=== PATIENT | male | born 2000 | race Caucasian/White ===

== ENCOUNTER 2020-01-11 08:57 | Outpatient (REF) | payer OTHER, SELFPAY ==
[2020-01-11 09:39] LABS: MANUAL DIFF FLAG NO
[2020-01-11 09:41] LABS: Basophils Percent Auto 0.6 % (0-2); Eosinophils Absolute Auto 0.2 X10*3/uL (0.0-0.4); Eosinophils Percent Auto 2.9 % (0-4); Hematocrit 47.9 % (42-52); Hemoglobin 15.7 g/dl (14.0-18.0); Imm Gran Abs Auto 0.03 X10*3/uL (0.00-0.03); Imm Gran Pct Auto 0.4 % (0.0-0.4); Lymphocytes Absolute Auto 2.3 X10*3/uL (1.2-4.9); Lymphocytes Percent Auto 31.6 % (20-40); Mean Corpuscular HGB Conc 32.8 g/dl (31.0-36.0); Mean Corpuscular Hemoglobin 26.5 pg (27.0-33.0); Mean Corpuscular Volume 80.8 fL (80-98); Mean Platelet Volume 10.1 fL (9.4-12.4); Monocytes Absolute Auto 0.6 X10*3/uL (0.1-1.2); Monocytes Percent Auto 8.3 % (2-11); Neutrophils Absolute Auto 4.1 X10*3/uL (2.0-8.3); Neutrophils Percent Auto 56.2 % (45-73); Platelet Count 300 X10*3/uL (160-400); Red Blood Count 5.93 X10*6/uL (4.60-5.80); Red Cell Distribution Width 12.4 % (11.0-16.0); White Blood Count 7.3 X10*3/uL (4.8-10.8)
[2020-01-11 10:11] LABS: Alanine Aminotransferase 39 U/L (0-40); Albumin Level 4.5 g/dL (3.5-5.0); Alkaline Phosphatase 100 U/L (39-117); Anion Gap 10 (12-20); Aspartate Amino Transferase 26 U/L (5-37); Bilirubin Total 0.9 mg/dL (0.0-1.0); Blood Urea Nitrogen 13 mg/dL (9-16); Calcium 9.5 mg/dL (8.4-10.2); Carbon Dioxide 29 mmol/L (22-29); Chloride 105 mmol/L (96-108); Estimated Glomerular Filt Rate > 60; Glucose Fasting 96 mg/dL (60-99); Potassium 4.4 mmol/l (3.3-5.1); Sodium 140 mmol/L (135-145); Total Protein 6.9 g/dL (6.5-8.0)
[2020-01-11 10:31] LABS: Thyroid Stimulating Hormone 1.54 mIU/mL (0.32-4.0)
== END 2020-01-11 08:58 | disposition home or self-care (01) ==
LOC: HO.LAB 08:57
PROVIDERS: PCP Physician Assistant; Visit Provider Physician Assistant
DX: Z13.29 Encounter for screening for other suspected endocrine disorder (principal); J45.20 Mild intermittent asthma, uncomplicated
CPT/HCPCS: 36415; 80053; 84443; 85025

== ENCOUNTER 2020-09-25 10:35 | Emergency (ER) | payer OTHER, SELFPAY ==
--- NOTE | 2020-09-25 | ECG_ITS ---
Test Reason : CHEST PAIN Blood Pressure : / mmHG Vent. Rate : 072 BPM Atrial Rate : 072 BPM P-R Int : 134 ms QRS Dur : 098 ms QT Int : 360 ms P-R-T Axes : 056 074 041 degrees QTc Int : 394 ms Normal sinus rhythm with sinus arrhythmia Early repolarization Normal ECG When compared with ECG of 23-APR-2013 20:37, No significant changes seen Referred By: Generic ED Physician Electronically Signed By:MARIANNE VALENZUELA MD
--- NOTE | ~2020-09-25 | XR_ITS ---
EXAMINATION: XR CHEST CLINICAL INFORMATION: Right-sided chest pain COMPARISON: None TECHNIQUE: 2 views of the chest were obtained. FINDINGS: No significant abnormality is noted involving the heart, lungs, mediastinum, bony thorax or soft tissues. XR/XR chest 2V IMPRESSION: Unremarkable examination.
[2020-09-25 10:47] VITALS: BP 139/81; PULSE 78; RESP 18; TEMP 36.2; O2SAT 97; BMI 24.6
--- NOTE | 2020-09-25 12:14 | ED.CHESTPAIN ---
HPI - Chest Pain General Chief Complaint: Chest Pain Stated Complaint: CHEST PAIN Time Seen by Provider: 09/25/20 11:34 Source: patient Mode of arrival: ambulatory Limitations: no limitations History of Present Illness HPI narrative: 19 y/o healthy male presenting to the ER with acute onset of sharp right upper chest pains that woke him up out of sleep this morning. He states he has some central chest pain as well but it migrated to his right upper chest. They were sharp and come and go, improved now. He states it was worse with swallowing. He denies SOB, difficulty breathing, cough, shoulder pain, hemoptysis, LE swelling. He has a family history of DVT/PE on his mother's side in 2 family members. No history of early cardiac disease. 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 MD complaint: chest pain Onset (ago): hour(s) (6) Timing of current episode: episodic Prior episodes: No Onset: during rest Pain location: right chest Severity: moderate Quality: sharp Relieving factors: nothing Exacerbating factors: nothing Treatment prior to arrival: none Related Data Previous Rx's Medication Instructions Recorded albuterol sulfate 90 mcg/actuation 2 puff INHALATION Q4-6H PRN #8.5 g 08/10/20 aerosol inhaler ibuprofen 800 mg PO Q8H PRN #8 tab 09/25/20 Allergies Allergy/AdvReac Type Severity Reaction Status Date / Time No Known Allergies Allergy Unverified 12/12/19 16:50 Mosquitos Allergy Unknown Uncoded 08/09/19 00:00 Rabbits Allergy Unknown Uncoded 08/09/19 00:00 Seasonal Allergy Unknown Uncoded 08/09/19 00:00 Review of Systems Review of Systems: Constitutional: No Fever, No Chills ENT/Mouth: No sore throat, No Rhinorrhea, No Swallowing Difficulty Cardiovascular: + Chest Pain, No SOB, No Orthopnea, No Edema Respiratory: No Cough, No Sputum, No Wheezing, No dyspnea Gastrointestinal: No Nausea, No Vomiting, No Diarrhea, No abdominal Pain Genitourinary: No Dysuria, No Urinary Frequency, No Hematuria Musculoskeletal: No joint pain, No Myalgias Skin: No Skin Lesions, No rash Neuro: No Weakness, No Numbness, No Dizziness, No Headache Psych: No Anxiety/Panic, No Depression Heme/Lymph: No Bruising, No Lymphadenopathy Endocrine: No Polyuria, No Polydipsia [facility] Past Medical History Attestation statement: The following information was validated with the patient. Medical History Asthma Social History Social History Advance Directives: Yes Advance Directives Information Provided: Yes Advance Directives on File: No Physical Exam Vital Signs: Vital Signs: Last Vital Signs Temp 97.2 F 09/25/20 10:47 Pulse 78 09/25/20 10:47 Resp 18 09/25/20 10:47 BP 139/81 09/25/20 10:47 Pulse Ox 97 09/25/20 10:47 Body Mass Index 24.6 Appearance: Alert. Oriented X3. No acute distress. Eyes: Pupils equal, round and reactive to light. ENT: Pharynx normal. Neck: Normal inspection. Neck supple. CVS: Normal heart rate and rhythm. Pulses normal. Respiratory: No respiratory distress. Breath sounds normal. Anterior chest wall is non-tender. Abdomen: Soft and nontender. +BS x4 Skin: Skin warm and dry. Normal skin color. Normal skin turgor. No rashes. Extremities: No lower extremity edema. Negative Sarmad's sign Neuro: Oriented X 3. No motor deficit. No sensory deficit. Course Course Course Narrative: 19 y/o male presenting with acute onset of right sided chest pain x7 hours, significantly improved now. +family history of DVT/PE. Will check CXR, EKG and labs including DDimer. Most likely anxiety related vs MSK. Reevaluation(s) Reevaluation #1: DDIMER is negative which is reassuring against PE. PERC negative. Troponin not clinically significant. No need to repeat given chest pain is >6 hours ago. Chest pain is most likely muscular. It is chest pain free at this time. He is stable for d/c home with PRN ibuprofen, rest and f/u with PCP. Patient agrees with plan. MDM - Chest Pain Medical Records Data Attestation: I reviewed the patient's medical records. Lab Data Attestation: I reviewed the patient's lab results. Result diagrams: 09/25/20 12:19 09/25/20 12:19 Labs: Lab Results 09/25/20 09/25/20 09/25/20 Range/Units 12:19 12:19 12:19 WBC 8.2 (4.8-10.8) X10*3/uL RBC 6.04 H (4.60-5.80) X10*6/uL Hgb 16.0 (14.0-18.0) g/dl Hct 48.5 (42-52) % MCV 80.3 (80-98) fL MCH 26.5 L (27.0-33.0) pg MCHC 33.0 (31.0-36.0) g/dl RDW 12.6 (11.0-16.0) % Plt Count 280 (160-400) X10*3/uL MPV 10.2 (9.4-12.4) fL Immature Gran % (Auto) 0.6 H (0.0-0.4) % Neut % (Auto) 64.6 (45-73) % Lymph % (Auto) 23.4 (20-40) % [place] % (Auto) 8.0 (2-11) % Eos % (Auto) 3.0 (0-4) % Baso % (Auto) 0.4 (0-2) % Lymph # (Auto) 2.7 (1.2-4.9) X10*3/uL [place] # (Auto) 0.3 (0.1-1.2) X10*3/uL Eos # (Auto) 0.2 (0.0-0.4) X10*3/uL Baso # (Auto) 0.1 (0.0-0.2) X10*3/uL Abs Immat Gran (auto) 0.00 (0.00-0.03) X10*3/uL Absolute Neuts (auto) 3.4 (2.0-8.3) X10*3/uL Absolute Nucleated RBC 0.000 (0.0-0.012) X10*3/uL Nucleated RBC % (auto) 0.0 (0.0-0.2) /100WBC D-Dimer < 200 NG/ML Sodium 140 (135-145) mmol/L Potassium 4.3 (3.3-5.1) mmol/L Chloride 106 (96-108) mmol/L Carbon Dioxide 28 (22-29) mmol/L Anion Gap 10 L (12-20) BUN 10 (9-16) mg/dL Creatinine 0.92 (0.5-1.4) mg/dL Estim Creat Clear Calc 123.9 Estimated GFR > 60 Random Glucose 95 (60-115) mg/dL Calcium 10.3 H D (8.4-10.2) mg/dL Total Bilirubin 0.5 (0.0-1.0) mg/dL Direct Bilirubin 0.2 (0.0-0.5) mg/dL AST 25 (5-37) U/L ALT 48 H (0-40) U/L Alkaline Phosphatase 114 (39-117) U/L Troponin I High Sens (<3.5-35.0) ng/L Total Protein 7.0 (6.5-8.0) g/dL Albumin 4.4 (3.5-5.0) g/dL 09/25/20 Range/Units 12:19 WBC (4.8-10.8) X10*3/uL RBC (4.60-5.80) X10*6/uL Hgb (14.0-18.0) g/dl Hct (42-52) % MCV (80-98) fL MCH (27.0-33.0) pg MCHC (31.0-36.0) g/dl RDW (11.0-16.0) % Plt Count (160-400) X10*3/uL MPV (9.4-12.4) fL Immature Gran % (Auto) (0.0-0.4) % Neut % (Auto) (45-73) % Lymph % (Auto) (20-40) % [place] % (Auto) (2-11) % Eos % (Auto) (0-4) % Baso % (Auto) (0-2) % Lymph # (Auto) (1.2-4.9) X10*3/uL [place] # (Auto) (0.1-1.2) X10*3/uL Eos # (Auto) (0.0-0.4) X10*3/uL Baso # (Auto) (0.0-0.2) X10*3/uL Abs Immat Gran (auto) (0.00-0.03) X10*3/uL Absolute Neuts (auto) (2.0-8.3) X10*3/uL Absolute Nucleated RBC (0.0-0.012) X10*3/uL Nucleated RBC % (auto) (0.0-0.2) /100WBC D-Dimer NG/ML Sodium (135-145) mmol/L Potassium (3.3-5.1) mmol/L Chloride (96-108) mmol/L Carbon Dioxide (22-29) mmol/L Anion Gap (12-20) BUN (9-16) mg/dL Creatinine (0.5-1.4) mg/dL Estim Creat Clear Calc Estimated GFR Random Glucose (60-115) mg/dL Calcium (8.4-10.2) mg/dL Total Bilirubin (0.0-1.0) mg/dL Direct Bilirubin (0.0-0.5) mg/dL AST (5-37) U/L ALT (0-40) U/L Alkaline Phosphatase (39-117) U/L Troponin I High Sens 5.8 (<3.5-35.0) ng/L Total Protein (6.5-8.0) g/dL Albumin (3.5-5.0) g/dL ECG Data ECG #1: Attestation: I personally reviewed and interpreted this ECG as follows: ECG interpretation date: 09/25/20 ECG interpretation time: 12:24 Prior ECG tracings: available for review Interpretation: normal sinus rhythm with sinus arrhythmia, early repolarization, HR 72 bpm, ID interval normal 134 ms, normal QTc Discharge Plan Discharge Clinical Impression: Atypical chest pain Patient Disposition: Home, Self-Care Instructions: Chest Pain (ED), Costochondritis (ED) Additional Instructions: Your chest x-ray, EKG and lab workup today was unremarkable. Your pain is most likely muscular. Recommend rest and ibuprofen as needed. Follow up with your doctor next week. If you develop new or worsening symptoms call 911 or come back to the ER for further evaluation. Prescriptions: New ibuprofen 800 mg tablet 800 mg PO Q8H PRN (Reason: pain) Qty: 8 RF: 0 No Action albuterol sulfate [ProAir HFA] 90 mcg/actuation HFA aerosol inhaler 2 puff inhalation Q4-6H PRN (Reason: shortness of breath or wheezing) Qty: 8.5 RF: 3 Stand Alone Forms: Work/School Release
[2020-09-25 12:23] LABS: MANUAL DIFF FLAG NO
[2020-09-25 12:33] LABS: Basophils Absolute Auto 0.1 X10*3/uL (0.0-0.2); D Dimer < 200 NG/ML; Eosinophils Absolute Auto 0.2 X10*3/uL (0.0-0.4); Lymphocytes Absolute Auto 2.7 X10*3/uL (1.2-4.9); Monocytes Absolute Auto 0.3 X10*3/uL (0.1-1.2); Neutrophils Absolute Auto 3.4 X10*3/uL (2.0-8.3)
[2020-09-25 12:40] LABS: Red Blood Count 6.04 X10*6/uL (4.60-5.80); White Blood Count 8.2 X10*3/uL (4.8-10.8)
[2020-09-25 12:42] LABS: Hematocrit 48.5 % (42-52); Mean Corpuscular Volume 80.3 fL (80-98)
[2020-09-25 12:43] LABS: Mean Corpuscular Hemoglobin 26.5 pg (27.0-33.0)
[2020-09-25 12:44] LABS: Platelet Count 280 X10*3/uL (160-400); Red Cell Distribution Width 12.6 % (11.0-16.0)
[2020-09-25 12:45] LABS: Mean Platelet Volume 10.2 fL (9.4-12.4); Neutrophils Percent Auto 64.6 % (45-73)
[2020-09-25 12:46] LABS: Imm Gran Pct Auto 0.6 % (0.0-0.4); Lymphocytes Percent Auto 23.4 % (20-40)
[2020-09-25 12:47] LABS: Basophils Percent Auto 0.4 % (0-2)
[2020-09-25 12:53] LABS: Alanine Aminotransferase 48 U/L (0-40); Albumin Level 4.4 g/dL (3.5-5.0); Alkaline Phosphatase 114 U/L (39-117); Anion Gap 10 (12-20); Aspartate Amino Transferase 25 U/L (5-37); Bilirubin Direct 0.2 mg/dL (0.0-0.5); Bilirubin Total 0.5 mg/dL (0.0-1.0); Blood Urea Nitrogen 10 mg/dL (9-16); Calcium 10.3 mg/dL (8.4-10.2); Carbon Dioxide 28 mmol/L (22-29); Chloride 106 mmol/L (96-108); Creatinine Clr Calc Pharmacy 123.9; Estimated Glomerular Filt Rate > 60; Glucose Random 95 mg/dL (60-115); Potassium 4.3 mmol/L (3.3-5.1); Sodium 140 mmol/L (135-145)
[2020-09-25 13:01] LABS: Troponin-I High Sensitivity 5.8 ng/L (<3.5-35.0)
== END 2020-09-25 13:46 | disposition home or self-care (01) ==
PROVIDERS: Physician Assistant; Emergency Provider Emergency Medicine Emergency Medical Services; PCP Physician Assistant
DX: R07.89 Other chest pain (principal)
CPT/HCPCS: 36415; 71046; 80048; 80076; 84484; 85025; 85379; 93005; 99283

== ENCOUNTER 2020-10-25 13:27 | Emergency (ER) | payer OTHER, SELFPAY ==
[2020-10-25 14:21] VITALS: BP 127/81; PULSE 80; RESP 16; TEMP 36.6; O2SAT 98; BMI 25.8
--- NOTE | 2020-10-25 15:27 | ED_ITS ---
HPI - Skin/Abscess/Foreign Bdy General Chief complaint: Skin/Abscess/Foreign Body Stated complaint: rash Source: patient Mode of arrival: ambulatory Limitations: no limitations History of Present Illness HPI narrative: Patient presents to ED for itchy rash on bilateral lower extremities and arms. Patient still having rash 4 weeks. Patient denies any rash in groin or testicles. Patient states no fever, chills, chest pain, or shortness of breath. Patient denies any swelling of lips, tongue, or shortness of breath MD complaint: rash Related Data Previous Rx's Medication Instructions Recorded albuterol sulfate 90 mcg/actuation 2 puff INHALATION Q4-6H PRN #8.5 g 08/10/20 aerosol inhaler (ProAir HFA) ibuprofen 800 mg tablet 800 mg PO Q8H PRN #8 tab 09/25/20 diphenhydramine HCl 25 mg capsule 25 mg PO TID PRN #30 cap 10/25/20 (Benadryl) famotidine 20 mg tablet (Pepcid) 20 mg PO BID 10 Days #20 tab 10/25/20 prednisone 20 mg tablet 60 mg PO DAILY 5 Days #15 tab 10/25/20 Allergies Allergy/AdvReac Type Severity Reaction Status Date / Time No Known Allergies Allergy Unverified 12/12/19 16:50 Mosquitos Allergy Unknown Uncoded 08/09/19 00:00 Rabbits Allergy Unknown Uncoded 08/09/19 00:00 Seasonal Allergy Unknown Uncoded 08/09/19 00:00 Review of Systems Review of Systems: Yes all other systems are reviewed and are negative Constitutional: Constitutional: Reports as per HPI and Reports no additional constitutional complaints Eyes: Eyes: Reports as per HPI and Reports no additional eye complaints ENT: Reports system reviewed and no additional complaints, except as documented and Reports as per HPI Cardiovascular: Cardiovascular: Reports as per HPI and Reports no additional cardiovascular complaints Respiratory: Respiratory: Reports as per HPI and Reports no additional respiratory complaints Gastrointestinal: Gastrointestinal: Reports as per HPI and Reports no additional gastrointestinal complaints Genitourinary: Genitourinary: Reports no additional male genitourinary complaints and Reports as per HPI Musculoskeletal: Musculoskeletal: Reports no additional musculoskeletal complaints and Reports as per HPI Comments: Itchy red PMFSH Past Medical History Medical History Asthma Social History Social History Advance Directives: No Advance Directives Information Provided: Yes Physical Exam Vital Signs: Vital Signs: Last Vital Signs Temp 98 F 10/25/20 14:21 Pulse 80 10/25/20 14:21 Resp 16 10/25/20 14:21 BP 127/81 10/25/20 14:21 Pulse Ox 98 10/25/20 14:21 Body Mass Index 25.8 Const: General: cooperative, healthy appearing, comfortable, no acute distress, well developed, alert, awake and Physically active Orientation/consciousness: patient oriented x3 HENMT: Head: Yes normal to inspection, Yes No palpable skull fracture present, Yes normocephalic and Yes atraumatic Eyes: General: appearance normal, both eyes and all related structures Neck: Neck: Yes normal visual inspection, Yes full ROM, Yes no lymphadenopathy, Yes no meningeal signs, Yes trachea midline, Yes supple and No tender Chest: Chest palpation & inspection: normal inspection of the chest and normal palpation of entire chest wall Resp: Effort & Inspection: normal respiratory effort and able to speak in complete sentences Auscultation: clear to auscultation bilaterally Cardio: Jugular venous distension: no JVD Heart sounds: S1 normal heart sound present and S2 normal heart sound present GI: Inspection: Yes normal to inspection and No abdominal wall ecchymosis Palpation (GI): Soft to palpation, not firm, nontender, no guarding and not rigid : General: No CVA tenderness and Yes no CVA tenderness Back/Spine/Pelvis: Back: no CVA tenderness, No CVA tenderness and No back tenderness Skin: General skin exam: elasticity normal Rashes: rashes noted (Dermatitis/uticaria rash on lower and upper extremities) Neuro: General: patient oriented x3, gait normal, no meningeal signs and CN's II-XI intact bilaterally Cranial nerves: Yes CN's II-XII intact bilaterally Extrem: Other: Dermatitis/Uticaria rash Psych: Appearance: grossly normal, well kempt and not disheveled Course Course Course Narrative: Dermatitis/Uticaria Reevaluation(s) Reevaluation #1: Patient will be sent home with Benadryl, prednisone, Pepcid Time: 15:34 MDM - Skin/Abscess/Foreign Bdy MDM Narrative Medical decision making narrative: Dermatitis versus he had a cardiac Discharge Plan Discharge Clinical Impression: Acute urticaria, Acute dermatitis Patient Disposition: Home, Self-Care Instructions: Urticaria (ED), Dermatitis (ED) Additional Instructions: Rash may be due to allergy or recent contact with Irritant. Return to the ED for any lip swelling, tongue swelling, shortness of breath, chest pain, fever, chills, worsening rash, or any other concerning symptoms. Follow-up with [facility]. [facility], [address] [place] [address], [place] [address]. Prescriptions: New prednisone 20 mg tablet 60 mg PO DAILY 5 Days Qty: 15 RF: 0 famotidine [Pepcid] 20 mg tablet 20 mg PO BID 10 Days Qty: 20 RF: 0 diphenhydramine HCl [Benadryl] 25 mg capsule 25 mg PO TID PRN (Reason: itchiness) Qty: 30 RF: 0 No Action albuterol sulfate [ProAir HFA] 90 mcg/actuation HFA aerosol inhaler 2 puff inhalation Q4-6H PRN (Reason: shortness of breath or wheezing) Qty: 8.5 RF: 3 ibuprofen 800 mg tablet 800 mg PO Q8H PRN (Reason: pain) Qty: 8 RF: 0 Interventions: ED Discharge Assessment Last Done: 10/25/20 15:48 Discharge Date/Time: 10/25/20 15:49 Print Language: Irish
== END 2020-10-25 15:49 | disposition home or self-care (01) ==
PROVIDERS: Emergency Provider Internal Medicine; PCP Physician Assistant
DX: L23.9 Allergic contact dermatitis, unspecified cause (principal); R21 Rash and other nonspecific skin eruption; Z79.899 Other long term (current) drug therapy
CPT/HCPCS: 99283

== ENCOUNTER 2021-03-24 11:54 | Outpatient (REF) | payer OTHER, SELFPAY ==
[2021-03-24 15:17] LABS: COVID-19 Test Negative (Negative); IDNOW Serial# 55D5AD1C
== END 2021-03-24 11:55 | disposition home or self-care (01) ==
LOC: HO.LAB 11:54
PROVIDERS: Visit Provider Internal Medicine
DX: Z20.822 Contact with and (suspected) exposure to COVID-19 (principal)
CPT/HCPCS: 36415; 87635; C9803

== ENCOUNTER 2023-03-09 10:02 | Outpatient (AMB) | payer OTHER, SELFPAY ==
--- NOTE | 2023-03-09 10:14 | MHC.PC.OV ---
Vital Signs 03/09/23 10:15 Height 5 ft 9 in Weight 184 lb 8 oz BMI 27.2 BP 108/72 Blood Pressure Location Lt brachial Position Sitting Respiration 17 Pulse 68 Pulse Source Palpation Intake Visit Reasons: PE Intake Note: Patient is here today for a physical. 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 Accompanied by: Father Allergies Mosquitos Allergy (Unknown, Uncoded 03/09/23 10:48) infections Rabbits Allergy (Unknown, Uncoded 03/09/23 10:48) Unknown Seasonal Allergy (Unknown, Uncoded 03/09/23 10:48) stuffy nose, itchy eye, coughing Medication List - Last Reconciled 03/09/23 by Deuce Arauz PA-C albuterol sulfate 90 mcg/actuation 1 inh inhalation QID cetirizine 10 mg PO DAILY 90 days Tobacco use date assessed: 03/09/23 Dental Screening Dental Screen Date: 03/09/23 Did you have a dental visit in the last 12 months?: Yes Did you have a dental problem in the last 6 months where you did not have access to dental care?: No Was dental information given to patient?: Patient has dentist HPI PE HPI Details Patient is a 22-year-old male here today for an annual physical. Patient has a past medical history of asthma to which she seldomly takes is albuterol inhaler. .. Asthma: Has been well controlled with allergy medication and only p.r.n. use of his albuterol inhaler. Concerns--> reports having random migraines once to twice per week. He does use a profound which does help relieve his migraines. He cannot confirm a trigger that could be causing his head pain. Vaccines: Needs up-to-date tetanus, declines COVID and flu PFSH Medical History Asthma Surgical History History of circumcision Family History Mother Diabetes Asthma High blood pressure Insomnia Father No problems noted. Other Mental health disorder Social History Housing: House Alcohol intake: never Patient Tobacco Use Status: Never used Tobacco e-Cigarette/Vaping Use: Never Used Second Hand Smoke Exposure: Yes service: No Current occupational status: employed Current occupation: Headroom Cognitive needs: No Hearing needs: No Vision needs: No Questionnaire PHQ-9 Over the last 2 weeks, how often have you been bothered by any of the following problems? 1. Little interest or pleasure in doing things: not at all 2. Feeling down, depressed, or hopeless: not at all 3. Trouble falling or staying asleep, or sleeping too much: not at all 4. Feeling tired or having little energy: not at all 5. Poor appetite or overeating: not at all 6. Feeling bad about yourself - or that you are a failure or have let yourself or your family down: not at all 7. Trouble concentrating on things, such as reading the newspaper or watching television: not at all 8. Moving or speaking so slowly that other people could have noticed. Or the opposite - being so fidgety or restless that you have been moving around a lot more than usual: not at all 9. Thoughts that you would be better off or of hurting yourself in some way: not at all Total score: 0 Depression Screening Interpretation: Negative Depression Screening Done: Yes 28611 - PHQ-9 Billing: Yes Source: Developed by Drs. Raudel Alicea, Lina Salmeron, Chino Ye and colleagues, with an educational kriss from [employer] Thrive Questionnaire Date Thrive assessed: 03/09/23 I am a: Patient What is your living situation today?: I have a steady place to live Within the past 12 months, did the food you bought not last and you didn't have the money to get more?: Never true Within the past 12 months, did you worry whether your food would run out before you got money to buy more?: Never true Do you have trouble paying for medicines?: No Do you have trouble getting transportation to medical appointments?: No Do you have trouble paying your heating and electricity bill?: No Do you have trouble taking care of your child, family member or friend?: No Do you have trouble with day-to-day activities such as bathing, preparing meals, shopping, managing finances, etc.?: No Are you currently unemployed and looking for a job?: No Are you interested in more education?: No Please select the resources that you would like help with: None Currently or been in a relationship where the following occur: no concerns reported AUDIT C Alcohol Use Questionnaire (AUDIT-C) 1. How often do you have a drink containing alcohol?: Never 3. How often do you have six or more drinks on one occasion?: Never Total Score: 0 DERECK-7 AMB Questionnaire DERECK-7 Date DERECK - 7 assessed: 03/09/23 Feeling nervous, anxious, or on edge: 0 = Not at all Not being able to stop or control worryin = Not at all Worrying too much about different things: 0 = Not at all Trouble relaxin = Not at all Being so restless that it is hard to sit still: 0 = Not at all Becoming easily annoyed or irritable: 0 = Not at all Feeling afraid as if something awful might happen: 0 = Not at all Total DERECK-7 score (0-4 normal; 5-9 mild; 10-14 moderate; 15-21 severe): 0 Source: Developed by Drs. Raudel Alicea, Lina Salmeron, Chino Ye and colleagues, with an educational kriss from [employer] DERECK-7 Assessment Billing DERECK-7 Assessment Tool: DERECK-7 Assessment 44309 Review of Systems Const Denies body aches, Denies chills, Denies excessive sweating, Denies fatigue, Denies fever(s) and Denies headache(s) Eyes Denies blurry vision ENT Denies dysphagia, Denies vertigo, Denies dizziness, Denies headache(s), Denies hearing loss and Denies tinnitus Card Denies chest pain, Denies chest pain with activity, Denies syncope, Denies irregular heart rhythm and Denies dyspnea Resp Denies chest congestion, Denies cough, Denies hemoptysis, Denies dyspnea and Denies wheezing GI Denies abdominal pain, Denies melena, Denies hematochezia, Denies coffee ground emesis, Denies dysphagia, Denies diarrhea, Denies nausea and Denies vomiting Denies difficulty urinating, Denies dysuria, Denies urinary frequency, Denies urinary hesitancy and Denies urinary urgency Musc Denies arthralgias, Denies limited range of motion, Denies muscle cramps and Denies muscle weakness Skin/Breast Denies rash and Denies skin ulcer Neuro Denies Abnormal speech present, Denies confusion, Denies vertigo, Denies dizziness, Denies syncope, Denies headache(s), Denies memory loss and Denies seizure-like activity Psych Denies anxiety, Denies confusion, Denies depression, Denies memory loss, Denies panic attacks and Denies paranoia Endo Denies excessive sweating, Denies fatigue, Denies flushing, Denies polydipsia and Denies polyuria Aller/Immun Denies wheezing Physical exam (Primary Care) Vital Signs: Last Vital Signs Pulse 68 03/09/23 10:15 Resp 17 03/09/23 10:15 BP 108/72 03/09/23 10:15 BMI result Body Mass Index 27.2 Tobacco/Smoking Status: Tobacco use Status Tobacco use date assessed 03/09/23 03/09/23 10:21 Patient Tobacco Use Status Never used Tobacco 03/09/23 10:21 e-Cigarette/Vaping Use Never Used 03/09/23 10:21 PHQ-9: PHQ-9 Score PHQ-9: Total score 0 03/09/23 10:58 Depression Screening Interpretation: Negative Thrive Assessment: Date of Thrive Assessment Date Thrive assessed 03/09/23 03/09/23 10:21 Currently or been in a relationship where the following occur: no concerns reported Const General: cooperative, comfortable, no acute distress, alert and awake; No confusion Orientation/consciousness: oriented to person, oriented to place, patient oriented x3 and No confusion HENMT Head: Yes normocephalic Ears: external ears normal and TM's normal bilaterally Face and sinus: No sinus tenderness Mouth: Normal oral and palatal mucosa present and tongue normal Teeth and gingiva: dentition normal and gingiva normal Throat: Yes posterior oropharynx normal, Yes tonsils normal and Yes uvula midline Eyes Conjunctivae: conjunctivae normal Sclerae: sclerae normal Pupils: Equal, round and reactive pupils present EOM: EOMs intact bilaterally Direct Ophthalmoscopy: No no photophobia Neck Neck: Yes no lymphadenopathy, No tender and Yes no JVD Thyroid: Thyroid normal Carotids: no bruits Chest Chest palpation & inspection: no tenderness Resp Effort & Inspection: normal respiratory effort, no audible wheezes, not labored and no stridor Auscultation: no crackles, no rales, no rhonchi and no wheezes Cardio Jugular venous distension: no JVD Rate: regular rate, not bradycardic and not tachycardic Rhythm: regular rhythm Bruits: no carotid bruits Peripheral pulses: Peripheral pulses 2+ throughout GI Inspection: Yes normal to inspection, No abdominal wall ecchymosis and No visible herniation Palpation (GI): Soft to palpation, nontender, no guarding, not rigid and No hepatosplenomegaly present Auscultation: normoactive bowel sounds General: Yes no CVA tenderness Back/Spine/Pelvis Back: no CVA tenderness and No back tenderness Cervical Spine: cervical ROM normal Thoracic/Lumbar Spine: thoracic and lumbar spine normal to inspection, straight leg raise negative bilaterally, No thoraco-lumbar ROM limited and No lumbar spinal tenderness Skin Lesions: no lesions Rashes: no rashes Wounds: no wounds Neuro General: oriented to person, oriented to place, patient oriented x3, CN's II-XI intact bilaterally and No confusion Cranial nerves: Yes Equal, round and reactive pupils present and Yes Normal accommodation reflex present Cognition (Neuro): normal cognition Speech: No Abnormal speech present Gait exam (Neuro): Normal gait present Motor exam (neuro): 5/5 motor strength present throughout Extrem Right upper extremity: full ROM; no cyanosis Left upper extremity: full ROM; no cyanosis Right lower extremity: no edema Left lower extremity: no edema Psych Appearance: grossly normal Mental Status: mental status grossly normal Affect: normal affect Attitude: cooperative Thought process: Normal thought process present Immunizations Boostrix Tdap 2.5 Lf unit-8 mcg-5 Lf/0.5 mL intramuscular syringe Performing Provider: Deuce Arauz PA-C [facility] Administered by: EVENS Childs on 03/09/23 11:09 Dose Route Admin Location Dispensed Lot Number Expiration Date NDC [employer] 0.5 mL IM Left Deltoid 0.5 mL [id number] 07/20/25 58785-337-81 [employer] VIS Given Date VIS Provided VIS Publication Date 03/09/23 Single Vaccine 20 Eligibility Eligibility Date Funding Source Not [facility] Eligible 03/09/23 Private Assessment and Plan Assessment & Plan (1) Annual physical exam: Code(s): Z00.00 - Encounter for general adult medical examination without abnormal findings (2) Asthma: Code(s): J45.909 - Unspecified asthma, uncomplicated Qualifiers: Asthma severity: mild Asthma persistence: intermittent Asthma complication type: uncomplicated Qualified Code(s): J45.20 - Mild intermittent asthma, uncomplicated Plan: Reports his asthma has been well controlled with only p.r.n. use of his asthma inhaler. The nighttime awakenings with asthma symptoms or recent asthma exacerbations (3) Seasonal allergies: Code(s): J30.2 - Other seasonal allergic rhinitis Plan: Continues with the use of daily use Zyrtec for his allergy symptoms. (4) Migraines: Code(s): G43.909 - Migraine, unspecified, not intractable, without status migrainosus Qualifiers: Migraine type: other Status migrainosus presence: without status migrainosus Intractability: not intractable Qualified Code(s): G43.809 - Other migraine, not intractable, without status migrainosus Plan: Reports over the last few months having random episodes of right-sided head pain. He reports they happen once or twice a week. He does use ibuprofen which has been helpful in reducing his head pain. He is willing to try magnesium and vitamin B2 . Will also trial Triptan for migraine. Orders: Orders Comprehensive [place]. Panel Fast Today Z13.1 - Encounter for screening for diabetes mellitus TDaP Immunization Today G43.809 - Other migraine, not intractable, without status migrainosus, Z23 - Encounter for immunization Medications: New riboflavin (vitamin B2) 50 mg PO DAILY 90 days 90 tabs 1RF G43.809 - Other migraine, not intractable, without status migrainosus magnesium oxide 250 mg PO DAILY 90 days 90 tabs 1RF G43.809 - Other migraine, not intractable, without status migrainosus sumatriptan succinate take 1 tab at onset of headache; if no relief may repeat 1 tab after at least 2 hrs; max = 4 tabs/24 hr PO 9 tabs 1RF G43.809 - Other migraine, not intractable, without status migrainosus sumatriptan succinate take 1 tab at onset of headache; if no relief may repeat 1 tab after at least 2 hrs; max = 4 tabs/24 hr PO 30 days 9 tabs 1RF G43.809 - Other migraine, not intractable, without status migrainosus Coding Level of Care Code Est Pt Prev Care [id number]([id number]) Diagnoses Annual physical exam Z00.00 Mild intermittent asthma without complication J45.20 Asthma severity: mild Asthma persistence: intermittent Asthma complication type: uncomplicated Seasonal allergies J30.2 Other migraine without status migrainosus, not intractable G43.809 Migraine type: other Status migrainosus presence: without status migrainosus Intractability: not intractable Additional Codes DERECK-7 Assessment Billing - DERECK-7 Assessment Tool: DERECK-7 Assessment 45884 ([id number])
[2023-03-09 10:15] VITALS: BP 108/72; PULSE 68; RESP 17; BMI 27.2
== END 2023-03-09 11:11 | disposition home or self-care (01) ==
PROVIDERS: Visit Provider Physician Assistant
DX: Z00.00 Encounter for general adult medical examination without abnormal findings (principal); J45.20 Mild intermittent asthma, uncomplicated; J30.2 Other seasonal allergic rhinitis; Z23 Encounter for immunization; G43.809 Other migraine, not intractable, without status migrainosus
CPT/HCPCS: 90471; 90715; 99395

== ENCOUNTER 2023-03-09 11:15 | Outpatient (REF) | payer OTHER, SELFPAY ==
[2023-03-09 12:33] LABS: Alanine Aminotransferase 52 U/L (0-40); Albumin Level 4.4 g/dL (3.5-5.0); Alkaline Phosphatase 110 U/L (39-117); Anion Gap 11 (12-20); Aspartate Amino Transferase 25 U/L (5-37); Bilirubin Total 0.5 mg/dL (0.0-1.0); Blood Urea Nitrogen 11 mg/dL (9-16); Calcium 9.7 mg/dL (8.4-10.2); Carbon Dioxide 28 mmol/L (22-29); Chloride 106 mmol/L (96-108); Estimated Glomerular Filt Rate > 60; Glucose Fasting 100 mg/dL (60-99); Potassium 4.1 mmol/L (3.3-5.1); Sodium 141 mmol/L (135-145); Total Protein 7.3 g/dL (6.5-8.0)
== END 2023-03-09 11:16 | disposition home or self-care (01) ==
LOC: HO.LAB 11:15
PROVIDERS: PCP Physician Assistant; Visit Provider Physician Assistant
DX: Z13.1 Encounter for screening for diabetes mellitus (principal)
CPT/HCPCS: 36415; 80053

== ENCOUNTER 2024-03-12 10:39 | Outpatient (AMB) | payer OTHER, SELFPAY ==
--- NOTE | 2024-03-12 10:52 | A.OFFPC_ITS ---
Vital Signs 03/12/24 10:53 Height 5 ft 9 in Weight 193 lb 6 oz BMI 28.6 BP 114/80 Blood Pressure Location Lt brachial Position Sitting Pulse 100 Pulse Source Pulse Oximeter Pulse Oximetry (%) 98 Oxygen Delivery Method Room Air Intake Visit Reasons: Annual Exam Intake Note: Patient is here today for a physical. Administrative Analyst Required: No Accompanied by: Self / Same As Patient Allergies Mosquitos Allergy (Unknown, Uncoded 03/12/24 10:57) infections Rabbits Allergy (Unknown, Uncoded 03/12/24 10:57) Unknown Seasonal Allergy (Unknown, Uncoded 03/12/24 10:57) stuffy nose, itchy eye, coughing Medication List - Last Reconciled 03/12/24 by Deuce Arauz PA-C albuterol sulfate 90 mcg/actuation 1 inh inhalation QID cetirizine 10 mg PO DAILY 90 days fluticasone propionate 50 mcg/actuation 1 spray intranasal BID PRN 30 days magnesium oxide 250 mg PO DAILY 90 days riboflavin (vitamin B2) 50 mg PO DAILY 90 days sumatriptan succinate take 1 tab at onset of headache; if no relief may repeat 1 tab after at least 2 hrs; max = 4 tabs/24 hr PO 30 days Tobacco use date assessed: 03/12/24 Dental Screening Dental Screen Date: 03/12/24 Did you have a dental visit in the last 12 months?: Yes Did you have a dental problem in the last 6 months where you did not have access to dental care?: No Was dental information given to patient?: Patient has dentist HPI Annual Exam HPI Details Patient is a 23-year-old male here today for an annual physical. Patient has a past medical history of asthma to which she seldomly takes is albuterol inhaler. .. Asthma: Has been well controlled with allergy medication and only p.r.n. use of his albuterol inhaler. Migraines: Has been a lot less frequent. Has only had to use a few sumatriptan over the last year. Vaccines: Up-to-date with tetanus vaccine, declines COVID and flu for now. [facility] Medical History Asthma Surgical History History of circumcision Family History Mother Diabetes Asthma High blood pressure Insomnia Father No problems noted. Other Mental health disorder Social History Housing: House Alcohol intake: never Patient Tobacco Use Status: Never used Tobacco e-Cigarette/Vaping Use: Never Used Second Hand Smoke Exposure: Yes service: No Current occupational status: employed Current occupation: [employer] Cognitive needs: No Hearing needs: No Vision needs: No Questionnaire PHQ-9 Over the last 2 weeks, how often have you been bothered by any of the following problems? 1. Little interest or pleasure in doing things: not at all 2. Feeling down, depressed, or hopeless: not at all 3. Trouble falling or staying asleep, or sleeping too much: not at all 4. Feeling tired or having little energy: not at all 5. Poor appetite or overeating: not at all 6. Feeling bad about yourself - or that you are a failure or have let yourself or your family down: not at all 7. Trouble concentrating on things, such as reading the newspaper or watching television: not at all 8. Moving or speaking so slowly that other people could have noticed. Or the opposite - being so fidgety or restless that you have been moving around a lot more than usual: not at all 9. Thoughts that you would be better off or of hurting yourself in some way: not at all Total score: 0 Depression Screening Interpretation: Negative Depression Screening Done: Yes 59407 - PHQ-9 Billing: Yes Source: Developed by Drs. Raudel Alicea, Lina Salmeron, Chino Ye and colleagues, with an educational kriss from [employer]. Thrive Questionnaire Date Thrive assessed: 03/12/24 I am a: Patient What is your living situation today?: I have a steady place to live Within the past 12 months, did the food you bought not last and you didn't have the money to get more?: I choose not to answer this question Within the past 12 months, did you worry whether your food would run out before you got money to buy more?: Never true Do you have trouble paying for medicines?: No Do you have trouble getting transportation to medical appointments?: No Do you have trouble paying your heating and electricity bill?: No Do you have trouble taking care of your child, family member or friend?: No Do you have trouble with day-to-day activities such as bathing, preparing meals, shopping, managing finances, etc.?: No Are you currently unemployed and looking for a job?: No Are you interested in more education?: No Please select the resources that you would like help with: None Currently or been in a relationship where the following occur: No concerns reported THRIVE Score: 0 AUDIT C Alcohol Use Questionnaire (AUDIT-C) 1. How often do you have a drink containing alcohol?: Never 3. How often do you have six or more drinks on one occasion?: Never Total Score: 0 DERECK-7 AMB Questionnaire DERECK-7 Date DERECK - 7 assessed: 03/12/24 Feeling nervous, anxious, or on edge: 1 = Several days Not being able to stop or control worryin = Not at all Worrying too much about different things: 0 = Not at all Trouble relaxin = Not at all Being so restless that it is hard to sit still: 0 = Not at all Becoming easily annoyed or irritable: 0 = Not at all Feeling afraid as if something awful might happen: 0 = Not at all Total DERECK-7 score (0-4 normal; 5-9 mild; 10-14 moderate; 15-21 severe): 1 Source: Developed by Drs. Raudel Alicea, Lina Salmeron, Chino Ye and colleagues, with an educational kriss from [employer]. DERECK-7 Assessment Billing DERECK-7 Assessment Tool: DERECK-7 Assessment 52496 ACT Questionnaire In the past 4 weeks, how much of the time did your asthma keep you from getting as much done at work, school or at home?: None of the time During the past 4 weeks, how often have you had shortness of breath?: Not at all During the past 4 weeks, how often did your asthma symptoms wake you up at night or earlier than usual in the morning?: Not at all During the past 4 weeks, how often have you had to use your rescue inhaler or nebulizer medication?: Not at all How would you rate your asthma control during the past 4 weeks?: Completely controlled ACT Interpretation: Negative Score: 25 Review of Systems Const Denies body aches, Denies chills, Denies excessive sweating, Denies fatigue, Denies fever(s) and Denies headache(s) Eyes Denies blurry vision ENT Denies dysphagia, Denies vertigo, Denies dizziness, Denies headache(s), Denies hearing loss and Denies tinnitus Card Denies chest pain, Denies chest pain with activity, Denies syncope, Denies irregular heart rhythm and Denies dyspnea Resp Denies chest congestion, Denies cough, Denies hemoptysis, Denies dyspnea and Denies wheezing GI Denies abdominal pain, Denies melena, Denies hematochezia, Denies coffee ground emesis, Denies dysphagia, Denies diarrhea, Denies nausea and Denies vomiting Denies difficulty urinating, Denies dysuria, Denies urinary frequency, Denies urinary hesitancy and Denies urinary urgency Musc Denies arthralgias, Denies limited range of motion, Denies muscle cramps and Denies muscle weakness Skin/Breast Denies rash and Denies skin ulcer Neuro Denies Abnormal speech present, Denies confusion, Denies vertigo, Denies dizziness, Denies syncope, Denies headache(s), Denies memory loss and Denies seizure-like activity Psych Denies anxiety, Denies confusion, Denies depression, Denies memory loss, Denies panic attacks and Denies paranoia Endo Denies excessive sweating, Denies fatigue, Denies flushing, Denies polydipsia and Denies polyuria Aller/Immun Denies wheezing Physical exam (Primary Care) Vital Signs: Last Vital Signs Pulse 100 03/12/24 10:53 BP 114/80 03/12/24 10:53 Pulse Ox 98 03/12/24 10:53 Oxygen Delivery Method Room Air 03/12/24 10:53 BMI result Body Mass Index 28.6 Tobacco/Smoking Status: Tobacco use Status Tobacco use date assessed 03/12/24 03/12/24 10:55 Patient Tobacco Use Status Never used Tobacco 03/12/24 10:55 e-Cigarette/Vaping Use Never Used 03/12/24 10:55 PHQ-9: PHQ-9 Score PHQ-9: Total score 0 03/12/24 10:56 Depression Screening Interpretation: Negative Thrive Assessment: Date of Thrive Assessment Date Thrive assessed 03/12/24 03/12/24 10:55 Currently or been in a relationship where the following occur: No concerns reported Const General: cooperative, comfortable, no acute distress, alert and awake; No confusion Orientation/consciousness: oriented to person, oriented to place, patient oriented x3 and No confusion HENMT Head: Yes normocephalic Ears: external ears normal and TM's normal bilaterally Face and sinus: No sinus tenderness Mouth: Normal oral and palatal mucosa present and tongue normal Teeth and gingiva: dentition normal and gingiva normal Throat: Yes posterior oropharynx normal, Yes tonsils normal and Yes uvula midline Eyes Conjunctivae: conjunctivae normal Sclerae: sclerae normal Pupils: Equal, round and reactive pupils present EOM: EOMs intact bilaterally Direct Ophthalmoscopy: No no photophobia Neck Neck: Yes no lymphadenopathy, No tender and Yes no JVD Thyroid: Thyroid normal Carotids: no bruits Chest Chest palpation & inspection: no tenderness Resp Effort & Inspection: normal respiratory effort, no audible wheezes, not labored and no stridor Auscultation: no crackles, no rales, no rhonchi and no wheezes Cardio Jugular venous distension: no JVD Rate: regular rate, not bradycardic and not tachycardic Rhythm: regular rhythm Bruits: no carotid bruits Peripheral pulses: Peripheral pulses 2+ throughout GI Inspection: Yes normal to inspection, No abdominal wall ecchymosis and No visible herniation Palpation (GI): Soft to palpation, nontender, no guarding, not rigid and No hepatosplenomegaly present Auscultation: normoactive bowel sounds General: Yes no CVA tenderness Back/Spine/Pelvis Back: no CVA tenderness and No back tenderness Cervical Spine: cervical ROM normal Thoracic/Lumbar Spine: thoracic and lumbar spine normal to inspection, straight leg raise negative bilaterally, No thoraco-lumbar ROM limited and No lumbar spinal tenderness Skin Lesions: no lesions Rashes: no rashes Wounds: no wounds Neuro General: oriented to person, oriented to place, patient oriented x3, CN's II-XI intact bilaterally and No confusion Cranial nerves: Yes Equal, round and reactive pupils present and Yes Normal accommodation reflex present Cognition (Neuro): normal cognition Speech: No Abnormal speech present Gait exam (Neuro): Normal gait present Motor exam (neuro): 5/5 motor strength present throughout Extrem Right upper extremity: full ROM; no cyanosis Left upper extremity: full ROM; no cyanosis Right lower extremity: no edema Left lower extremity: no edema Psych Appearance: grossly normal Mental Status: mental status grossly normal Affect: normal affect Attitude: cooperative Thought process: Normal thought process present Office Procedures Flu Questionnaire Does the patient have a severe egg allergy?: No Immunizations Fluarix Triv [id number] (PF) 45 mcg (15 mcg x 3)/0.5 mL IM syringe Performing Provider: Deuce Arauz PA-C Performing Location: [facility] [place] [facility] Documented (not given) by: EVENS Childs on 03/12/24 10:56 Reason Not Given: Patient Refused Coding Level of Care Code Est Pt Prev Care 18-39y(99039) Diagnoses Annual physical exam Z00.00 Mild intermittent asthma without complication J45.20 Asthma severity: mild Asthma persistence: intermittent Asthma complication type: uncomplicated Other migraine without status migrainosus, not intractable G43.809 Migraine type: other Status migrainosus presence: without status migrainosus Intractability: not intractable Additional Codes DERECK-7 Assessment Billing - DERECK-7 Assessment Tool: DERECK-7 Assessment 01545 ([id number]) PHQ-9 - 21830 - PHQ-9 Billing: Yes ([id number]) Asthma Control Questionnaire - ACT Interpretation: Negative ([id number]) Assessment & Plan Assessment & Plan (1) Annual physical exam: Code(s): Z00.00 - Encounter for general adult medical examination without abnormal findings Category: Medical Plan: As per HPI (2) Asthma: Code(s): J45.909 - Unspecified asthma, uncomplicated Category: Medical Qualifiers: Asthma severity: mild Asthma persistence: intermittent Asthma complication type: uncomplicated Qualified Code(s): J45.20 - Mild intermittent asthma, uncomplicated Plan: Patient reports his asthma has been very well controlled with only p.r.n. use of his albuterol inhaler. He denies any nighttime awakenings or recent asthma exacerbations. (3) Migraines: Code(s): G43.909 - Migraine, unspecified, not intractable, without status migrainosus Category: Medical Qualifiers: Migraine type: other Status migrainosus presence: without status migrainosus Intractability: not intractable Qualified Code(s): G43.809 - Other migraine, not intractable, without status migrainosus Plan: Patient reports his migraines has been well controlled with only p.r.n. use of sumatriptan. Orders: Orders Influenza [id number] Immunization Today Z23 - Encounter for immunization Comprehensive [place]. Panel Fast Today Z13.1 - Encounter for screening for diabetes mellitus Complete Blood Count no Diff Today Z13.1 - Encounter for screening for diabetes mellitus Medications: Changed From albuterol sulfate 90 mcg/actuation 1 inh inhalation QID J45.20 - Mild intermittent asthma, uncomplicated To albuterol sulfate 90 mcg/actuation 1 inh inhalation QID 30 days 8.5 grams 1RF J45.20 - Mild intermittent asthma, uncomplicated Refilled sumatriptan succinate take 1 tab at onset of headache; if no relief may repeat 1 tab after at least 2 hrs; max = 4 tabs/24 hr PO 30 days 9 tabs 1RF G43.809 - Other migraine, not intractable, without status migrainosus
[2024-03-12 10:53] VITALS: BP 114/80; PULSE 100; O2SAT 98; BMI 28.6
== END 2024-03-12 11:06 | disposition home or self-care (01) ==
PROVIDERS: PCP Physician Assistant; Visit Provider Physician Assistant
DX: Z00.00 Encounter for general adult medical examination without abnormal findings (principal); J45.20 Mild intermittent asthma, uncomplicated; G43.809 Other migraine, not intractable, without status migrainosus; Z23 Encounter for immunization

== ENCOUNTER → 2024-03-12 10:39 | Outpatient (BNVA) | payer OTHER, SELFPAY | PROVIDERS: PCP Physician Assistant; Visit Provider Physician Assistant | DX: Z00.00 Encounter for general adult medical examination without abnormal findings (principal); J45.20 Mild intermittent asthma, uncomplicated; G43.809 Other migraine, not intractable, without status migrainosus; Z28.21 Immunization not carried out because of patient refusal | CPT/HCPCS: 90471; 96127; 96160 ==

== ENCOUNTER 2024-11-02 21:01 | Emergency (ER) | payer OTHER, SELFPAY ==
--- NOTE | ~2024-11-02 | XR_ITS ---
CLINICAL HISTORY: cough 1 view chest x-ray. Comparison: None Findings: Normal lung volumes. Lungs are clear. No pneumothorax or pleural effusion. Heart size normal. No passive venous congestion. No midline shift or tracheal deviation. No acute fracture. Impression: 1. No acute cardiopulmonary disease. This document has been electronically signed by: Cruz Sheffield MD on 11/02/2024 22:29:58
[2024-11-02 21:10] VITALS: BP 144/81; PULSE 87; RESP 18; TEMP 37; O2SAT 97; BMI 27.6
[2024-11-02 21:28] LABS: MANUAL DIFF FLAG NO
[2024-11-02 21:29] LABS: Hematocrit 45.9 % (42.0-52.0); Hemoglobin 15.8 g/dl (14.0-18.0); Imm Gran Abs Auto 0.03 X10*3/uL (0.00-0.03); Imm Gran Pct Auto 0.3 % (0.0-0.4); Lymphocytes Absolute Auto 2.5 X10*3/uL (1.2-4.9); Mean Corpuscular HGB Conc 34.4 g/dl (31.0-36.0); Mean Corpuscular Hemoglobin 26.7 pg (27.0-33.0); Mean Corpuscular Volume 77.5 fL (80.0-98.0); NRBC Abs Auto 0.000 X10*3/uL (0.0-0.012); NRBC Pct Auto 0.0 /100WBC (0.0-0.2); Platelet Count 332 X10*3/uL (160-400); Red Blood Count 5.92 X10*6/uL (4.60-5.80); White Blood Count 10.2 X10*3/uL (4.8-10.8)
[2024-11-02 21:44] LABS: Alanine Aminotransferase 66 U/L (0-40); Albumin Level 4.6 g/dL (3.5-5.0); Alkaline Phosphatase 111 U/L (39-117); Anion Gap 15 (12-20); Aspartate Amino Transferase 33 U/L (5-37); Blood Urea Nitrogen 10 mg/dL (9-16); Calcium 9.2 mg/dL (8.4-10.2); Carbon Dioxide 25 mmol/L (22-29); Chloride 105 mmol/L (96-108); Creatinine Clr Calc Pharmacy 101.7; Estimated Glomerular Filt Rate > 60; Magnesium 1.9 mg/dL (1.6-2.6); Potassium 3.6 mmol/L (3.3-5.1); Sodium 141 mmol/L (135-145); Total Protein 7.5 g/dL (6.5-8.0)
[2024-11-02 22:05] LABS: Resp Syncy Virus RNA Qual PCR NEGATIVE (Negative); SARS COV2 PCR INHOUSE NEGATIVE (Negative)
--- NOTE | 2024-11-02 22:14 | PC.NURSE ---
pt presents w/ URI symptoms- pt sts his cough is longer , when questioned further, pt feels he is cough is more drawn out as opposed to a short dry cough. no sputum. pt speaking in full sentances, no increased WOB noted. Pt SpO2 while speaking 98-99%.Pt does have asthma hx, sts he uses his albuterol MDI >4x/day. He is not on any oral or inhaled daily asthma management. pt denies, smoking drinkng/ drug use. Lungs CTA in all webb.
--- NOTE | 2024-11-02 22:21 | ED.GENADULT ---
HPI - General Adult General Chief complaint: Upper Respiratory Symptoms Stated complaint: dry cough/sob-does have asthma Time Seen by Provider: 11/02/24 22:21 History of Present Illness ED Provider: Rodney LEACH narrative: The patient is a 24-year-old male. He has a history of asthma that he describes as fairly mild. He also has a history of environmental allergies. His only medications are cetirizine and albuterol. The patient has had a dry cough for several days, less than a week. He has also felt somewhat short of breath he says. He has been using his albuterol inhaler without much relief. He says the dry cough is unusual and he is somewhat worried about what it might mean. No definite fever. No nausea or vomiting or diarrhea. The patient is on no hormonal medications. He is a nonsmoker. He has had no pain or swelling in his legs. Related Data Previous Rx's ?Medication ?Instructions ?Recorded magnesium oxide 250 mg PO DAILY 90 days #90 tabs 03/09/23 riboflavin (vitamin B2) 50 mg 50 mg PO DAILY 90 days #90 tabs 03/09/23 tablet sumatriptan succinate 25 mg tablet See Rx Instructions PO .COMPLEX 30 03/12/24 days #9 tabs cetirizine 10 mg tablet 10 mg PO DAILY 90 days #90 tabs 08/19/24 fluticasone propionate 50 1 spray intranasal BID PRN allergy 10/13/24 mcg/actuation nasal symptoms 30 days #16 grams spray,suspension albuterol sulfate 90 mcg/actuation 1 inh inhalation QID 30 days #8.5 11/01/24 aerosol inhaler grams budesonide-formoterol HFA 160 2 puff inhalation BID #10.2 grams 11/03/24 mcg-4.5 mcg/actuation aerosol inhaler prednisone 20 mg tablet 40 mg (2 x 20 mg) PO DAILY 3 days 11/03/24 #6 tabs Allergies Allergy/AdvReac Type Severity Reaction Status Date / Time Mosquitos Allergy Unknown infections Uncoded 11/02/24 21:13 Rabbits Allergy Unknown Unknown Uncoded 11/02/24 21:13 Seasonal Allergy Unknown stuffy Uncoded 11/02/24 21:13 nose, itchy eye, coughing Review of Systems Review of Systems: Yes all other systems are reviewed and are negative PMFSH Past Medical History Medical History Asthma Surgical History History of circumcision Family History Family History Mother Diabetes Asthma High blood pressure Insomnia Father No problems noted. Other Mental health disorder Social History Social History Housing: House Alcohol intake: never Patient Tobacco Use Status: Never used Tobacco Smoked in Last 30 Days: No e-Cigarette/Vaping Use: Never Used Second Hand Smoke Exposure: Yes Use of substances other than those prescribed or required for medical reasons: No Advance Directives: No Advance Directives Information Provided: No service: No Current occupational status: employed Current occupation: [employer] Cognitive needs: No Hearing needs: No Vision needs: No Physical Exam ED Vital Signs: Vital Signs - 24 hr 11/02/24 21:10 11/02/24 22:30 11/02/24 22:45 Temperature 98.6 F 98.6 F Pulse Rate 87 76 Respiratory Rate 18 18 Blood Pressure 144/81 H 124/80 Pulse Oximetry 97 99 99 Oxygen Delivery Method Room Air Room Air Room Air 11/02/24 22:51 Temperature Pulse Rate 84 Respiratory Rate 16 Blood Pressure Pulse Oximetry Oxygen Delivery Method BMI result Body Mass Index 27.6 Const Other: The patient is awake, alert, pleasant, cooperative. He has not appear in overt distress. Orientation/consciousness: patient oriented x3 HENMT Other: Face is symmetrical, mucous membranes moist, posterior pharynx is unremarkable Eyes General: appearance normal, both eyes and all related structures Neck Neck: Yes normal visual inspection, Yes full ROM and Yes no lymphadenopathy Resp Other: No increased work of breathing. No definite wheezes. I felt there was a prolonged expiratory phase. Cardio Rate: regular rate Rhythm: regular rhythm Heart sounds: S1 normal heart sound present and S2 normal heart sound present GI Other: Abdomen is soft and nontender Skin Other: The skin is dry and unremarkable Neuro General: patient oriented x3, moves all extremities, no focal motor deficits and CN's II-XI intact bilaterally Extrem Other: There is no calf swelling or tenderness. No asymmetry. No peripheral edema. Medications Administered Discontinued Medications Generic Name Dose Route Start Last Admin Trade Name Jose M PRN Reason Stop Dose Admin Albuterol/Ipratropium 3 ml 11/02/24 22:38 11/02/24 22:51 Albuterol/Iprat 2.5/0.5mg 3 Ml Ampul.Neb INHALE 11/02/24 22:39 3 ml ONCE ONE Administration Prednisone 60 mg 11/03/24 00:16 11/03/24 00:33 Prednisone 20 Mg Tablet PO 11/03/24 00:17 60 mg ONCE ONE Administration Medical Decision Making Medical Decision Making [facility] Narrative: The patient is a 24-year-old male whose chief complaint is a dry cough he has had for several days. The patient did not describe feeling very short of breath to me but that he was here with his mother who describes him as short of breath. Clinically the patient does not appear significantly ill. On his lung exam he does not have definite wheezes but I think he has a prolonged expiratory phase. He is not exhibiting any increased work of breathing. He is PERC negative. He has no risk factors for pulmonary embolism. He has a Wells score of 0. On physical exam he has no sign of a DVT. Chest x-ray is negative. The patient was given a trial of a DuoNeb updraft. He said this seemed to be helpful. On this basis I suspect that this presentation is probably most likely related to his asthma. He will be placed on a course of prednisone. I will also prescribe an inhaler with budesonide-formoterol. He should follow up with his PCP. He should return if worse. Lab Data 11/02/24 21:22 11/02/24 21:22 Labs: Lab Results 11/02/24 Range/Units 21:22 WBC 10.2 (4.8-10.8) X10*3/uL RBC 5.92 H (4.60-5.80) X10*6/uL Hgb 15.8 (14.0-18.0) g/dl Hct 45.9 (42.0-52.0) % MCV 77.5 L (80.0-98.0) fL MCH 26.7 L (27.0-33.0) pg MCHC 34.4 (31.0-36.0) g/dl RDW 12.5 (11.0-16.0) % Plt Count 332 (160-400) X10*3/uL MPV 9.7 (9.4-12.4) fL Immature Gran % (Auto) 0.3 (0.0-0.4) % Neut % (Auto) 65.0 (45-73) % Lymph % (Auto) 24.5 (20-40) % Yell % (Auto) 8.0 (2-11) % Eos % (Auto) 1.5 (0-4) % Baso % (Auto) 0.7 (0-2) % Lymph # (Auto) 2.5 (1.2-4.9) X10*3/uL Yell # (Auto) 0.8 (0.1-1.2) X10*3/uL Eos # (Auto) 0.2 (0.0-0.4) X10*3/uL Baso # (Auto) 0.1 (0.0-0.2) X10*3/uL Abs Immat Gran (auto) 0.03 (0.00-0.03) X10*3/uL Absolute Neuts (auto) 6.6 (2.0-8.3) x10*3/uL Absolute Nucleated RBC 0.000 (0.0-0.012) X10*3/uL Nucleated RBC % (auto) 0.0 (0.0-0.2) /100WBC Sodium 141 (135-145) mmol/L Potassium 3.6 (3.3-5.1) mmol/L Chloride 105 (96-108) mmol/L Carbon Dioxide 25 (22-29) mmol/L Anion Gap 15 (12-20) BUN 10 (9-16) mg/dL Creatinine 1.11 (0.5-1.4) mg/dL Estim Creat Clear Calc 101.7 Estimated GFR > 60 Random Glucose 95 (60-115) mg/dL Calcium 9.2 (8.4-10.2) mg/dL Magnesium 1.9 (1.6-2.6) mg/dL Total Bilirubin 0.5 (0.0-1.0) mg/dL AST 33 (5-37) U/L ALT 66 H (0-40) U/L Alkaline Phosphatase 111 (39-117) U/L Total Protein 7.5 (6.5-8.0) g/dL Albumin 4.6 (3.5-5.0) g/dL Influenza Type A (PCR) NEGATIVE (Negative) Influenza Type B (PCR) NEGATIVE (Negative) RSV RNA Qual (PCR) NEGATIVE (Negative) SARS-CoV-2 RNA (RT-PCR) NEGATIVE (Negative) Discharge Plan Discharge Clinical Impression: Cough, Asthma exacerbation Patient Disposition: Home, Self-Care Instructions: Asthma (ED) Additional Instructions: I think your symptoms are probably related to your asthma. You have been started on the medication prednisone. This is a steroid medication which is an anti-inflammatory medication that helps symptoms of asthma. Please take the medication once a day until done. In addition I have sent a prescription for a different kind of inhaler which I think would be more useful for you. Please use the new inhaler medication instead of your albuterol, especially after you finish the prednisone. The new inhaler, budesonide-formoterol, has a both they bronchodilator drug (like albuterol) and a steroid effect as well. Recent studies have shown that this is a more effective medication to control asthma rather than just albuterol alone. Once you are feeling better I would recommend taking 1 puff of this medication 2 times a day. Whenever you feel that your asthma is getting worse you can increase the use of this medication 2 as much as 2 puffs every 4 hours as needed, much like albuterol. Please follow up soon with your regular doctor. Return to the emergency room if you feel significantly worse. Prescriptions: New budesonide-formoterol 160-4.5 mcg/actuation HFA aerosol inhaler 2 puff inhalation BID Qty: 10.2 0RF prednisone 20 mg tablet 40 mg PO DAILY 3 Days Qty: 6 0RF No Action cetirizine 10 mg tablet 10 mg PO DAILY 90 Days Qty: 90 2RF fluticasone propionate 50 mcg/actuation spray,suspension 1 spray intranasal BID PRN (Reason: allergy symptoms) 30 Days Qty: 16 1RF Rx Instructions: administer into each nostril albuterol sulfate 90 mcg/actuation HFA aerosol inhaler 1 inh inhalation QID 30 Days Qty: 8.5 1RF riboflavin (vitamin B2) 50 mg tablet 50 mg PO DAILY 90 Days Qty: 90 1RF magnesium oxide 250 mg magnesium tablet 250 mg PO DAILY 90 Days Qty: 90 1RF sumatriptan succinate 25 mg tablet See Rx Instructions PO .COMPLEX 30 Days Qty: 9 1RF Rx Instructions: take 1 tab at onset of headache; if no relief may repeat 1 tab after at least 2 hrs; max = 4 tabs/24 hr PO Referrals: Deuce Arauz PA-C [Primary Care Provider, Internal Medicine] Print Language: [place]
[2024-11-02 22:30] VITALS: BP 124/80; PULSE 76; RESP 18; TEMP 37; O2SAT 99
[2024-11-02 22:45] VITALS: O2SAT 99
[2024-11-02 22:51] VITALS: PULSE 84; RESP 16; O2SAT 98
[2024-11-02] MEDS: Albuterol/Iprat 2.5/0.5MG 3 ML AMPUL.NEB INHALE (22:51)
[2024-11-03 02:13] VITALS: BP 122/64; PULSE 80; RESP 16; TEMP 36.8; O2SAT 97
== END 2024-11-03 00:40 | disposition home or self-care (01) ==
PROVIDERS: Emergency Provider Emergency Medicine; PCP Physician Assistant
DX: J45.901 Unspecified asthma with (acute) exacerbation (principal); R05.9 Cough, unspecified; R06.02 Shortness of breath; Z03.818 Encounter for observation for suspected exposure to other biological agents ruled out; Z79.899 Other long term (current) drug therapy
CPT/HCPCS: 36415; 71045; 80053; 83735; 85025; 87637; 94640; 99284; 99285

== ENCOUNTER → 2024-11-02 21:47 | Outpatient (BNV) | payer OTHER, SELFPAY | PROVIDERS: Emergency Provider Emergency Medicine; PCP Physician Assistant; Visit Provider Radiology Diagnostic Radiology | DX: R05.9 Cough, unspecified (principal) | CPT/HCPCS: 71045 ==

== ENCOUNTER 2025-03-17 11:19 | Outpatient (AMB) | payer OTHER, SELFPAY ==
--- NOTE | 2025-03-17 11:39 | A.OFFPC_ITS ---
Vital Signs 03/17/25 11:40 Height 5 ft 9 in Weight 200 lb BMI 29.5 BP 120/86 Blood Pressure Location Lt brachial Position Sitting Respiration 16 Pulse 81 Pulse Source Pulse Oximeter Temp 98.6 F Temp Source Temporal Artery Scan Pulse Oximetry (%) 98 Oxygen Delivery Method Room Air Intake Visit Reasons: Annual Exam Access Rn Required: No Accompanied by: Self / Same As Patient Allergies Mosquitos Allergy (Unknown, Uncoded 03/17/25 11:54) infections Rabbits Allergy (Unknown, Uncoded 03/17/25 11:54) Unknown Seasonal Allergy (Unknown, Uncoded 03/17/25 11:54) stuffy nose, itchy eye, coughing Medication List - Last Reconciled 03/17/25 by Deuce Arauz PA-C albuterol sulfate 90 mcg/actuation 1 inh inhalation QID 30 days budesonide-formoterol 160-4.5 mcg/actuation 2 puffs inhalation BID cetirizine 10 mg PO DAILY 90 days fluticasone propionate 50 mcg/actuation 1 spray intranasal BID PRN 30 days ibuprofen 200 mg PO Q6H PRN magnesium oxide 250 mg PO DAILY 90 days Tobacco use date assessed: 03/17/25 Dental Screening Dental Screen Date: 03/17/25 Did you have a dental visit in the last 12 months?: Yes Did you have a dental problem in the last 6 months where you did not have access to dental care?: No Was dental information given to patient?: Patient has dentist HPI Annual Exam HPI Details Patient is a 24-year-old male here today for an annual physical. Patient has a past medical history of asthma to which she seldomly takes is albuterol inhaler. Have noted weight gain since last office visit .. Asthma: He did have asthma exacerbation due to poor alcohol already in October of 2024. Otherwise is asthma has been well controlled with allergy medication and only p.r.n. use of his albuterol inhaler. Migraines: Has been a lot less frequent. Has only had to use a few sumatriptan over the last year. Vaccines: Up-to-date with tetanus vaccine, declines COVID and flu for now. [facility] Medical History Asthma Surgical History History of circumcision Family History Mother Diabetes Asthma High blood pressure Insomnia Father No problems noted. Other Mental health disorder Social History Housing: House Alcohol intake: never Patient Tobacco Use Status: Never used Tobacco e-Cigarette/Vaping Use: Never Used Second Hand Smoke Exposure: Yes service: No Current occupational status: employed Current occupation: [employer] Cognitive needs: No Hearing needs: No Vision needs: No Questionnaire PHQ-9 Over the last 2 weeks, how often have you been bothered by any of the following problems? 1. Little interest or pleasure in doing things: not at all 2. Feeling down, depressed, or hopeless: not at all 3. Trouble falling or staying asleep, or sleeping too much: not at all 4. Feeling tired or having little energy: not at all 5. Poor appetite or overeating: not at all 6. Feeling bad about yourself - or that you are a failure or have let yourself or your family down: not at all 7. Trouble concentrating on things, such as reading the newspaper or watching television: not at all 8. Moving or speaking so slowly that other people could have noticed. Or the opposite - being so fidgety or restless that you have been moving around a lot more than usual: not at all 9. Thoughts that you would be better off or of hurting yourself in some way: not at all Total score: 0 Depression Screening Interpretation: Negative Depression Screening Done: Yes 29015 - PHQ-9 Billing: Patient declined-do not bill Source: Developed by Drs. Raudel Alicea, Lina Salmeron, Chino Ye and colleagues, with an educational kriss from [employer]. Thrive Questionnaire Date Thrive assessed: 03/17/25 I am a: Patient What is your living situation today?: I have a steady place to live Within the past 12 months, did the food you bought not last and you didn't have the money to get more?: Never true Within the past 12 months, did you worry whether your food would run out before you got money to buy more?: Never true Do you have trouble paying for medicines?: No Do you have trouble getting transportation to medical appointments?: No Do you have trouble paying your heating and electricity bill?: No Do you have trouble taking care of your child, family member or friend?: No Do you have trouble with day-to-day activities such as bathing, preparing meals, shopping, managing finances, etc.?: No Are you currently unemployed and looking for a job?: No Are you interested in more education?: No Please select the resources that you would like help with: None Currently or been in a relationship where the following occur: No concerns reported THRIVE Score: 0 AUDIT C Alcohol Use Questionnaire (AUDIT-C) 1. How often do you have a drink containing alcohol?: Never 3. How often do you have six or more drinks on one occasion?: Never Total Score: 0 DERECK-7 AMB Questionnaire DERECK-7 Date DERECK - 7 assessed: 03/17/25 Feeling nervous, anxious, or on edge: 0 = Not at all Not being able to stop or control worryin = Not at all Worrying too much about different things: 0 = Not at all Trouble relaxin = Not at all Being so restless that it is hard to sit still: 0 = Not at all Becoming easily annoyed or irritable: 0 = Not at all Feeling afraid as if something awful might happen: 0 = Not at all Total DERECK-7 score (0-4 normal; 5-9 mild; 10-14 moderate; 15-21 severe): 0 Source: Developed by Drs. Raudel Alicea, Lina Salmeron, Chino Ye and colleagues, with an educational kriss from [employer]. DERECK-7 Assessment Billing DERECK-7 Assessment Tool: DERECK-7 Assessment 36461 Review of Systems Const Denies body aches, Denies chills, Denies excessive sweating, Denies fatigue, Denies fever(s) and Denies headache(s) Eyes Denies blurry vision ENT Denies dysphagia, Denies vertigo, Denies dizziness, Denies headache(s), Denies hearing loss and Denies tinnitus Card Denies chest pain, Denies chest pain with activity, Denies syncope, Denies irregular heart rhythm and Denies dyspnea Resp Denies chest congestion, Denies cough, Denies hemoptysis, Denies dyspnea and Denies wheezing GI Denies abdominal pain, Denies melena, Denies hematochezia, Denies coffee ground emesis, Denies dysphagia, Denies diarrhea, Denies nausea and Denies vomiting Denies difficulty urinating, Denies dysuria, Denies urinary frequency, Denies urinary hesitancy and Denies urinary urgency Musc Denies arthralgias, Denies limited range of motion, Denies muscle cramps and Denies muscle weakness Skin/Breast Denies rash and Denies skin ulcer Neuro Denies Abnormal speech present, Denies confusion, Denies vertigo, Denies dizziness, Denies syncope, Denies headache(s), Denies memory loss and Denies seizure-like activity Psych Denies anxiety, Denies confusion, Denies depression, Denies memory loss, Denies panic attacks and Denies paranoia Endo Denies excessive sweating, Denies fatigue, Denies flushing, Denies polydipsia and Denies polyuria Aller/Immun Denies wheezing Physical exam (Primary Care) Vital Signs: Last Vital Signs Temp 98.6 F 03/17/25 11:40 Pulse 81 03/17/25 11:40 Resp 16 03/17/25 11:40 BP 120/86 03/17/25 11:40 Pulse Ox 98 03/17/25 11:40 Oxygen Delivery Method Room Air 03/17/25 11:40 BMI result Body Mass Index 29.5 Tobacco/Smoking Status: Tobacco use Status Tobacco use date assessed 03/17/25 03/17/25 11:47 Patient Tobacco Use Status Never used Tobacco 03/17/25 11:47 e-Cigarette/Vaping Use Never Used 03/17/25 11:47 PHQ-9: PHQ-9 Score PHQ-9: Total score 0 03/17/25 11:47 Depression Screening Interpretation: Negative Thrive Assessment: Date of Thrive Assessment Date Thrive assessed 03/17/25 03/17/25 11:47 Currently or been in a relationship where the following occur: No concerns reported Const General: cooperative, comfortable, no acute distress, alert and awake; No confusion Orientation/consciousness: oriented to person, oriented to place, patient oriented x3 and No confusion HENMT Head: Yes normocephalic Ears: external ears normal and TM's normal bilaterally Face and sinus: No sinus tenderness Mouth: Normal oral and palatal mucosa present and tongue normal Teeth and gingiva: dentition normal and gingiva normal Throat: Yes posterior oropharynx normal, Yes tonsils normal and Yes uvula midline Eyes Conjunctivae: conjunctivae normal Sclerae: sclerae normal Pupils: Equal, round and reactive pupils present EOM: EOMs intact bilaterally Direct Ophthalmoscopy: No no photophobia Neck Neck: Yes no lymphadenopathy, No tender and Yes no JVD Thyroid: Thyroid normal Carotids: no bruits Chest Chest palpation & inspection: no tenderness Resp Effort & Inspection: normal respiratory effort, no audible wheezes, not labored and no stridor Auscultation: no crackles, no rales, no rhonchi and no wheezes Cardio Jugular venous distension: no JVD Rate: regular rate, not bradycardic and not tachycardic Rhythm: regular rhythm Bruits: no carotid bruits Peripheral pulses: Peripheral pulses 2+ throughout GI Inspection: Yes normal to inspection, No abdominal wall ecchymosis and No visible herniation Palpation (GI): Soft to palpation, nontender, no guarding, not rigid and No hepatosplenomegaly present Auscultation: normoactive bowel sounds General: Yes no CVA tenderness Back/Spine/Pelvis Back: no CVA tenderness and No back tenderness Cervical Spine: cervical ROM normal Thoracic/Lumbar Spine: thoracic and lumbar spine normal to inspection, straight leg raise negative bilaterally, No thoraco-lumbar ROM limited and No lumbar spinal tenderness Skin Lesions: no lesions Rashes: no rashes Wounds: no wounds Neuro General: oriented to person, oriented to place, patient oriented x3, CN's II-XI intact bilaterally and No confusion Cranial nerves: Yes Equal, round and reactive pupils present and Yes Normal accommodation reflex present Cognition (Neuro): normal cognition Speech: No Abnormal speech present Gait exam (Neuro): Normal gait present Motor exam (neuro): 5/5 motor strength present throughout Extrem Right upper extremity: full ROM; no cyanosis Left upper extremity: full ROM; no cyanosis Right lower extremity: no edema Left lower extremity: no edema Psych Appearance: grossly normal Mental Status: mental status grossly normal Affect: normal affect Attitude: cooperative Thought process: Normal thought process present Coding Level of Care Code Est Pt Prev Care [id number]([id number]) Diagnoses Annual physical exam Z00.00 Mild intermittent asthma without complication J45.20 Asthma severity: mild Asthma persistence: intermittent Asthma complication type: uncomplicated Additional Codes DERECK-7 Assessment Billing - DERECK-7 Assessment Tool: DERECK-7 Assessment [id number] ([id number]) Assessment & Plan Assessment & Plan (1) Annual physical exam: Code(s): Z00.00 - Encounter for general adult medical examination without abnormal findings Category: Medical Plan: As per HPI (2) Asthma: Code(s): J45.909 - Unspecified asthma, uncomplicated Category: Medical Qualifiers: Asthma severity: mild Asthma persistence: intermittent Asthma complication type: uncomplicated Qualified Code(s): J45.20 - Mild intermittent asthma, uncomplicated Plan: Patient reports his asthma has been very well controlled with only p.r.n. use of his albuterol inhaler. He denies any nighttime awakenings or recent asthma exacerbations. Orders: Orders Comprehensive [place]. Panel Fast Today Z13.1 - Encounter for screening for d iabetes mellitus Complete Blood Count no Diff Today Z13.1 - Encounter for screening for diabetes mellitus
[2025-03-17 11:40] VITALS: BP 120/86; PULSE 81; RESP 16; TEMP 37; O2SAT 98; BMI 29.5
== END 2025-03-17 12:04 | disposition home or self-care (01) ==
LOC: HO.HMCH 11:20
PROVIDERS: PCP Physician Assistant; Visit Provider Physician Assistant
DX: Z00.00 Encounter for general adult medical examination without abnormal findings (principal); J45.20 Mild intermittent asthma, uncomplicated

== ENCOUNTER → 2025-03-17 11:19 | Outpatient (BNVA) | payer OTHER, SELFPAY | PROVIDERS: PCP Physician Assistant; Visit Provider Physician Assistant | DX: Z13.31 Encounter for screening for depression (principal); Z13.39 Encounter for screening examination for other mental health and behavioral disorders | CPT/HCPCS: 96127 ==